=== PATIENT | male | born 1955 | race Caucasian/White ===

== ENCOUNTER 2020-06-21 16:11 | Emergency (ER) | payer OTHER ==
[~2020-06-21] VITALS: Ht 180.3 cm; Wt 121.6 kg
[~2020-06-21 16:11] MED LIST: AUGMENTIN 875-1 EACH PO; LISINOPRIL-HCT1 EAC2 PO; NORCO 5-325 TA1 EACH PO
--- NOTE | 2020-06-22 14:35 | EKG ---
[facility] [address] [facility] [place], [place] [address] Signed Normal sinus rhythm Normal ECG No previous ECGs available Confirmed by SIDNEY CARRILLO MD ([id number]) on 06/22/2020 2:35:28 PM Electronically Signed By: SIDNEY CARRILLO MD 06/22/20 1435 PATIENT NAME: STEPHANIE CRUZ Electrocardiogram DATE OF : 51 PHYSICIAN: SIDNEY CARRILLO MD REPORT #: [id number] REPORT IS CONFIDENTIAL AND NOT TO BE RELEASED WITHOUT AUTHORIZATION
--- NOTE | 2020-06-22 20:58 | PATH ---
[facility] [address] [facility] [place], [place] [address] Signed ORDERING PHYSICIAN: Jim Awad MD PATIENT NAME: STEPHANIE CRUZ GENDER: Macy : 1955 SPECIMEN(S): MOLECULAR PATHOLOGY RESULTS: SARS-CoV-2 DETECTED ADDITIONAL NOTES.: The [employer] Fusion SARS-CoV-2 Assay is a multiplex real-time PCR (RT-PCR) in vitro diagnostic test intended for the qualitative detection of RNA from SARS-CoV-2 from individuals who meet COVID-19 clinical and/or epidemiological criteria. In general, SARS-CoV-2 RNA can be detected during the acute phase of infection. Positive results indicate the presence of SARS-CoV-2 RNA. Clinical correlation with patient history and other diagnostic information is necessary to determine patient infection status. Positive results do not rule out bacterial infection or co-infection with other viruses. Negative results do not preclude SARS-CoV-2 infection and should not be used as the sole basis for patient management decisions. Negative results must be combined with other clinical observations, patient history, and epidemiological information. The [employer] Fusion SARS-CoV-2 Assay is not yet approved or cleared by the [place] FDA. When there are no FDA-approved or cleared tests available, and other criteria are met, FDA can make tests available under an emergency access mechanism called an Emergency Use Authorization (EUA). The EUA for this test is supported by the [place] of Health and Human Service's (HHS's) declaration that circumstances exist to justify the emergency use of in vitro diagnostics for the detection and/or diagnosis of the virus that causes COVID-19. This EUA will remain in effect for the duration of the COVID-19 declaration justifying emergency of IVDs, unless it is terminated or revoked by FDA, after which the test may no longer be used. The [employer]airs Fusion SARS-CoV-2 Assay is for use only under EUA in US laboratories certified under the Clinical Laboratory Improvement Amendments of 1988 (CLIA) to perform high complexity tests. [facility] is certified under CLIA to perform high complexity PATIENT NAME: STEPHANIE CRUZ PATHOLOGY DATE OF : 51 REPORT #: [id number] PHYSICIAN: SARATH HANNA PCP: JARON PATTEN MD REPORT IS CONFIDENTIAL AND NOT TO BE RELEASED WITHOUT AUTHORIZATION [address] [address] Signed clinical laboratory testing. PERFORMING LABORATORY.: Molecular testing was performed by [facility] [address] (Rn Maternal Child: Marcelo Alanis D.O.; CLIA#: [id number]) Diagnostician: System Interface Pathologist Electronically Signed 06/22/2020 Copies: ~ PATIENT NAME: STEPHANIE CRUZ PATHOLOGY DATE OF : 51 REPORT #: [id number] PHYSICIAN: SARATH HANNA PCP: JARON PATTEN MD REPORT IS CONFIDENTIAL AND NOT TO BE RELEASED WITHOUT AUTHORIZATION
== END 2020-06-21 20:16 | disposition home or self-care (01) ==
LOC: ED 16:11
DX: U07.1 COVID-19 (principal); I10 Essential (primary) hypertension; Z79.899 Other long term (current) drug therapy
CPT/HCPCS: 71045; 80053; 81001; 83605; 85025; 85379; 87040; 93005; 93010; 99284-25; C9803; U0003

== ENCOUNTER 2024-05-20 09:10 | Emergency (ER) | payer OTHER ==
[~2024-05-20] VITALS: Ht 180.3 cm; Wt 91.2 kg
[2024-05-20] MEDS ORDERED: HYDROCODON-ACE1 EA10 PO (12:27)
[2024-05-20] MEDS ORDERED: IBUPROFEN 600 MG TAB PO ONE (12:30)
[2024-05-20] MEDS ORDERED: HYDROCODONE/ACETA 5/325 TAB PO ONE (12:30)
[2024-05-20 12:45] VITALS: BP 138/68
== END 2024-05-20 12:47 | disposition home or self-care (01) ==
LOC: ED 09:10
DX: S70.01XA Contusion of right hip, initial encounter (principal); S30.0XXA Contusion of lower back and pelvis, initial encounter; I10 Essential (primary) hypertension; W10.9XXA Fall (on) (from) unspecified stairs and steps, initial encounter
CPT/HCPCS: 72131; 72192; A9270